=== PATIENT | female | born 1930 | race Caucasian/White ===

== ENCOUNTER 2017-03-24 21:14 | Emergency (ER) | payer MEDICARE ==
[2017-03-25] MEDS ORDERED: BOOSTRIX IM ONE (00:21)
--- NOTE | 2017-03-25 00:26 | Emergency Department Report ---
HPI - General Chief Complaint: Fall Time Seen by Provider: 03/25/17 00:15 - HPI HPI: Room 4 The patient is an 87-year-old female presenting with a chief complaint of head injury after fall. The patient was sent from [facility] after a ground-level fall was reported from the bed. There was no reported LOC. Patient has a cut above the right eye. The patient was sent to the ED for a head CT. The patient has a history of Alzheimer's Location: Head Duration: [see above] Quality: Laceration Severity: Moderate Modifying factors: [see above] Context: [see above] Mode of transportation: [not driving] ED Past Medical Hx - Past Medical History Hx GERD: Yes Hx Dementia: Yes (Alzheimer's) - Surgical History Hx Pacemaker: Yes - Family History Family history: no significant - Social History Smoking Status: Unknown if ever smoked Substance Use Type: None - Medications Home Medications: Home Medications Medication Instructions Recorded Confirmed Last Taken Type traMADol [Ultram] 50 mg PO Q6HR PRN #10 tablet 03/25/17 Unknown Rx ED Review of Systems ROS: Stated complaint: HEAD LACERATION Other details as noted in HPI Comment: Unobtainable due to pts medical conditions Physical Exam - Physical Exam Vital Signs: Vital Signs 03/24/17 23:02 Temperature 98.6 F Pulse Rate 80 Respiratory 12 Rate Blood Pressure 110/68 [Left] O2 Sat by Pulse 98 Oximetry Physical Exam: GENERAL: The patient is well-developed well-nourished female lying on stretcher not appearing to be in acute distress. [] HEENT: Normocephalic. Dressing to right forehead with dried blood present. Brandish over the right eye there is an approximately 1.5 cm laceration that is hemostatic. Extraocular motions are intact. Patient has moist mucous membranes. NECK: Supple. Trachea midline CHEST/LUNGS: Clear to auscultation. There is no respiratory distress noted. HEART/CARDIOVASCULAR: Regular. There is no tachycardia. There is no gallop rub or murmur. ABDOMEN: Abdomen is soft, nontender. Patient has normal bowel sounds. There is no abdominal distention. SKIN: There is no rash. There is no edema. There is no diaphoresis. NEURO: The patient is awake. The patient is cooperative. MUSCULOSKELETAL: There is no limitation range of motion. ED Course Vital Signs 07/28/17 23:02 Temperature 98.6 F Pulse Rate 80 Respiratory 12 Rate Blood Pressure 110/68 [Left] O2 Sat by Pulse 98 Oximetry ED Medical Decision Making - Radiology Data Radiology results: report reviewed (CT head, CT cervical spine), image reviewed (CT head, CT cervical spine) CT head (read by radiologist)-there is right frontal scalp swelling. There is no skull fracture. There is mild central and cortical atrophy. There is no hydrocephalus. There is calcified plaque in the cavernous portions of the internal carotid arteries. There is chronic deep white matter ischemic gliosis. CT cervical spine (read by radiologist)-no significant abnormalities - Differential Diagnosis ICH, closed head injury, forehead laceration Critical care attestation.: If time is entered above; I have spent that time in minutes in the direct care of this critically ill patient, excluding procedure time. ED Disposition Clinical Impression: Forehead laceration, Closed head injury Disposition: DC- TO HOME OR SELFCARE Is pt being admited?: No Does the pt Need Aspirin: No Condition: Stable Instructions: Minor Head Injury (ED), Skin Adhesive Care (ED) Additional Instructions: Return to the emergency department immediately should you develop worsening symptoms, fever, inability to tolerate food or liquid or any other concerns. Prescriptions: traMADol [Ultram] 50 mg PO Q6HR PRN #10 tablet PRN Reason: Pain Referrals: PRIMARY CARE,MD [Primary Care Provider] - 3-5 Days Time of Disposition: 02:43 Blank Doc - Documentation Documentation: Laceration note Consent was obtained [verbally/unobtainable] Length of wound: 1.5 cm Site was prepped with hydrogen peroxide Laceration was repaired with tissue adhesive The wound had [good] approximation The wound had [good] hemostasis Laceration type: Simple There were no complications
--- NOTE | 2017-03-25 01:28 | Cat Scan Report ---
FINAL REPORT PROCEDURE: CT HEAD/BRAIN WO CON TECHNIQUE: Computerized tomography of the head was performed without contrast material. HISTORY: head injury after fall from bed COMPARISON: No prior studies are available for comparison. FINDINGS: Skull and scalp: There is right frontal scalp swelling. There is no skull fracture.. Paranasal sinuses: Normal. Ventricles and subarachnoid spaces: There is mild central and cortical atrophy. There is no hydrocephalus.. Cerebrum: No evidence of hemorrhage, acute infarction or mass . Cerebellum and brainstem: No evidence of hemorrhage, acute infarction or mass. Vasculature: There is calcified plaque in the cavernous portions of the internal carotid arteries.. Comments: There is chronic deep white matter ischemic gliosis.. IMPRESSION: There is right frontal scalp swelling. There is no skull fracture.. There is mild central and cortical atrophy. There is no hydrocephalus.. There is calcified plaque in the cavernous portions of the internal carotid arteries.. There is chronic deep white matter ischemic gliosis..
--- NOTE | 2017-03-25 01:32 | Cat Scan Report ---
FINAL REPORT PROCEDURE: CT CERVICAL SPINE WO CON TECHNIQUE: Computerized tomography of the cervical spine was performed from the skull base to T1 without contrast material. HISTORY: head injury after fall from bed COMPARISON: No prior studies are available for comparison. FINDINGS: Skull base and foramen magnum are intact. There are no fractures or malalignments of the cervical vertebrae. The disc spaces are normal. Facet joints are intact. Prevertebral soft tissues are normal in thickness. IMPRESSION: No significant abnormality.
[2017-03-25] MEDS ORDERED: HYDROGEN PEROXIDE ONE (02:31)
[2017-03-25 03:20] VITALS: BP 137/72
[2017-03-25] MEDS ORDERED: HYDROGEN PEROXIDE TP ONE (05:25)
== END 2017-03-25 03:40 | disposition home or self-care (01) ==
LOC: ED 21:14
DX: S01.81XA Laceration without foreign body of other part of head, initial encounter (principal); S09.90XA Unspecified injury of head, initial encounter; K21.9 Gastro-esophageal reflux disease without esophagitis; G30.9 Alzheimer's disease, unspecified; F02.80 Dementia in other diseases classified elsewhere, unspecified severity, without behavioral disturbance, psychotic disturbance, mood disturbance, and anxiety; W06.XXXA Fall from bed, initial encounter; Y93.89 Activity, other specified; Y99.8 Other external cause status; Y92.89 Other specified places as the place of occurrence of the external cause
CPT/HCPCS: 70450; 72125; 90471; 90715

== ENCOUNTER 2018-03-22 22:12 | Emergency (ER) | payer MEDICARE ==
[2018-03-22 22:28] VITALS: BP 118/56
[2018-03-22] MEDS ORDERED: XYLOCAINE 1% 20 mL INFILTRATI ONE (22:38)
[2018-03-22] MEDS ORDERED: BOOSTRIX IM ONE (22:38)
--- NOTE | 2018-03-22 22:46 | Emergency Department Report ---
ED Laceration HPI - HPI Chief Complaint: Fall Stated Complaint: FALL Time Seen by Provider: 03/22/18 22:23 Occurred When: Today Tetanus Status: Up to Date (2017) Other History: This is a 88-year-old female brought by paramedics nontoxic, well nourished in appearance, no acute signs of distress presents to the ED for right eyebrow laceration that occurred tonight. As per paramedics patient was walking and tripped and fell and hit her right eyebrow. Gokul denies any loss of consciousness. Paramedics stated that this occurred at a correction with staff present. Paramedics did the patient has dementia. Paramedics the patient is up-to-date with tetanus as of 2017. Paramedics denies any other trauma. Paramedics denies any allergies. ED Review of Systems ROS: Stated complaint: FALL Other details as noted in HPI Unable due to dementia ED Past Medical Hx - Past Medical History Hx Hypertension: Yes Hx Diabetes: Yes Hx GERD: Yes Hx Dementia: Yes (Alzheimer's) Additional medical history: Legally blind, Restless and agitation, Anxiety, Psychosis, Aphasia, Contracture Multiple Sclerosis, CVA, Gastroesophageal Hemmorage unspecified, hypertensive encephalopathy,insomnia, Alzheheimers, anemia, Pacemaker, Atrioventricular Block Complete, Lack of coordination, Esophegeal Obstruction - Surgical History Hx Pacemaker: Yes Additional Surgical History: Pacemaker - Social History Smoking Status: Unknown if ever smoked - Medications Home Medications: Home Medications Medication Instructions Recorded Confirmed Last Taken Type traMADol [Ultram] 50 mg PO Q6HR PRN #10 tablet 03/25/17 Unknown Rx ALPRAZolam [Xanax TAB] 0.25 mg FEEDTUBE BID PRN 07/12/17 02/17/18 Unknown History Acetaminophen [Tylenol Arthritis] 650 mg FEEDTUBE BID 07/12/17 02/17/18 Unknown History Aspirin 81 mg FEEDTUBE QDAY 07/12/17 02/17/18 Unknown History Atorvastatin Calcium [Lipitor] 10 mg FEEDTUBE QHS 07/12/17 02/17/18 Unknown History Carvedilol [Coreg] 3.125 mg FEEDTUBE BID 07/12/17 02/17/18 Unknown History Citalopram Hydrobromide [celeXA] 10 mg FEEDTUBE QDAY 07/12/17 02/17/18 Unknown History Omeprazole 20 mg FEEDTUBE QDAY 07/12/17 02/17/18 Unknown History Polyethylene Glycol 3350 [Miralax 17 gm PO QDAY 07/12/17 02/17/18 Unknown History 3350] Rivastigmine [Exelon Patch 4.6 mg TD QDAY 07/12/17 02/17/18 Unknown History 4.6mg/24hr] traMADol [Ultram 50 MG tab] 50 mg FEEDTUBE Q6HR PRN #14 tablet 07/15/17 Unknown Rx Pantoprazole [Protonix TAB] 40 mg FEEDTUBE DAILY #30 tablet 02/18/18 Unknown Rx Ibuprofen [Motrin] 600 mg PO Q8H PRN #30 tablet 03/22/18 Unknown Rx Sulfamethoxazole/Trimethoprim 1 each PO BID #14 tablet 03/22/18 Unknown Rx [Bactrim DS TAB] Laceration Physical Exam - Exam General: Vital signs noted. No distress. Alert and acting appropriately. Wound Length (cm): 1 Full Body Front + Back: 1 - 1 cm superficial linear laceration Laceration Exam: Yes Normal Distal CMS, No Foreign Body, No Exposed Tendon, Vessel, or Nerve, No Tendon Injury ED Course Vital Signs 03/22/18 22:22 Temperature 97.2 F L Pulse Rate 61 Respiratory 18 Rate Blood Pressure 118/56 Blood Pressure 118/56 [Left] O2 Sat by Pulse 92 Oximetry - Laceration /Wound Repair Right Face Wound Location: face (right eyebrow) Wound Length (cm): 1 Wound's Depth, Shape: superficial, linear Wound Explored: clean Irrigated w/ Saline (ccs): 40 Betadine Prep?: Yes Volume Anesthetic (ccs): 6 Wound Debrided: minimal Wound Repaired With: sutures Suture Size/Type: 5:0, nylon Number of Sutures: 3 Layer Closure?: No Sterile Dressing Applied?: Yes Progress: Under sterile field, I used Betadine to clean the area. I then used 40 mL of normal saline to flush the area. I then used 1% lidocaine plain and injected 6 mL to the wound. I then used a 5-0 Ethilon to suture the laceration. Number of stitches 3. I then applied a sterile 4 x 4 with tape. Minimal bleeding noted but is under control. Patient tolerated procedure well with no signs of distress. ED Medical Decision Making - Medical Decision Making This is a 88-year-old female that presents with laceration. Patient is stable and was examined by me. The laceration suturing has been performed and has been performed and patient tolerated well. CT of cervical spine, head and facial bone obtained and all dictated by radiologist. A sterile dressing has been applied. Patient is discharged with Bactrim and Motrin. Discharge instructions indicates to return in 7 days for suture removal. At time of discharge, the patient does not seem toxic or ill in appearance. No acute signs of distress noted. Patient agrees to discharge treatment plan of care. No further questions noted by the patient. Critical care attestation.: If time is entered above; I have spent that time in minutes in the direct care of this critically ill patient, excluding procedure time. ED Disposition Clinical Impression: Laceration Disposition: [id number] HOME UNDER HOME HLTH Is pt being admited?: No Does the pt Need Aspirin: No Condition: Stable Instructions: Suture Care (ED), Laceration (ED) Additional Instructions: Follow-up with a primary care doctor in 3-5 days or if symptoms worsen and continue return to emergency room as soon as possible. Return in 7 days for suture removal. Prescriptions: Ibuprofen [Motrin] 600 mg PO Q8H PRN #30 tablet PRN Reason: Pain Sulfamethoxazole/Trimethoprim [Bactrim DS TAB] 1 each PO BID #14 tablet Referrals: PRIMARY CARE, [Referring] - 3-5 Days
--- NOTE | 2018-03-22 23:07 | Cat Scan Report ---
FINAL REPORT EXAM: CT HEAD/BRAIN WO CON HISTORY: Fall TECHNIQUE: 2.5 millimeter axial images from the skullbase to the vertex. Comparison: Head CT dated March 25, 2017 FINDINGS: There is no evidence of an acute intracranial process, intracranial hemorrhage or mass effect. Ventricular size is concordant with the degree of atrophy. The visualized portions of the orbits, paranasal and mastoid sinuses are unremarkable. There is no evidence of fracture. There is mild right frontal scalp soft tissue swelling. IMPRESSION: 1. No evidence of an acute intracranial process, intracranial hemorrhage or mass effect. 2. Mild right frontal scalp soft tissue swelling.
--- NOTE | 2018-03-22 23:13 | Cat Scan Report ---
FINAL REPORT EXAM: CT FACIAL BONES WO CON HISTORY: Fall TECHNIQUE: Axial helical imaging through the face with sagittal and coronal reformatted images obtained. Comparison: Head CT also performed today FINDINGS: There is no evidence of fracture. There is mild right facial, periorbital and frontal scalp soft tissue swelling. The orbital contents are unremarkable in appearance. The paranasal sinuses are without significant mucosal thickening or air-fluid levels. The nasal septum is midline. IMPRESSION: 1. No evidence of facial fracture. 2. Right facial, periorbital and frontal scalp soft tissue swelling.
--- NOTE | 2018-03-22 23:21 | Cat Scan Report ---
FINAL REPORT EXAM: CT CERVICAL SPINE WO CON HISTORY: Fall TECHNIQUE: Axial helical imaging through the cervical spine with sagittal and coronal reformatted images obtained. Comparison: CT cervical spine dated March 25, 2017 FINDINGS: There is straightening of the normal lordotic curve of the cervical spine similar in appearance to the previous study. The vertebral heights are maintained. There is loss of height of the C5-C6 and C6-C7 discs with associated degenerative endplate change. There is no evidence of significant bony canal stenosis. There is multiple level [id number] foraminal stenosis secondary to spondylitic change. Visualized a knight detail the contents of the cervical canal is limited by artifact. There is no evidence of fracture or subluxation. The paraspinous soft tissues are unremarkable. There is atherosclerotic vascular calcification of the carotid bifurcation bilaterally. IMPRESSION: 1. No evidence of fracture or subluxation. 2. Cervical spondylosis. 3. No significant change since previous study dated March 25, 2017.
== END 2018-03-23 02:12 | disposition home health service (06) ==
LOC: ED 22:12
DX: S01.111A Laceration without foreign body of right eyelid and periocular area, initial encounter (principal); I10 Essential (primary) hypertension; E11.9 Type 2 diabetes mellitus without complications; K21.9 Gastro-esophageal reflux disease without esophagitis; Z95.0 Presence of cardiac pacemaker; Z79.82 Long term (current) use of aspirin; Z86.73 Personal history of transient ischemic attack (TIA), and cerebral infarction without residual deficits; W01.0XXA Fall on same level from slipping, tripping and stumbling without subsequent striking against object, initial encounter; Y93.89 Activity, other specified; Y92.89 Other specified places as the place of occurrence of the external cause; Y99.8 Other external cause status
CPT/HCPCS: 70450; 70486; 72125; 99283